=== PATIENT | male | born 1940 | race Caucasian/White ===

== ENCOUNTER 2019-01-11 00:44 | Emergency (ER) | payer MEDICARE ==
[~2019-01-11] VITALS: Ht 170.2 cm; Wt 45.6 kg
[~2019-01-11 00:44] MED LIST: BUPR-83 PO; ESZO1TAB11; LORA1TAB PO; PRIM50TA31; REM15T PO
[2019-01-11 01:18] VITALS: BP 121/97
[2019-01-11] MEDS ORDERED: bacitracin 15gm ointment TP ONE (02:15)
[2019-01-11] MEDS ORDERED: acetaminophen 325mg tablet PO ONE (02:15)
[2019-01-11] MEDS ORDERED: ibuprofen 200mg tablet PO ONE (02:15)
[2019-01-11] MEDS ORDERED: TETanus/Pertussis (Acell)/Diphther VAC/PF (Tdap-Adult) 0.5ml syringe IM ONE (02:15)
[2019-01-11] MEDS ORDERED: ACET-2615 PO (02:26)
--- NOTE | 2019-01-11 03:05 | NUR ---
PT WOUND CLEANED WITH 50 ML NS. SURROUNDING SKIN TREATED WITH TINCTURE OF BENZOIN. STERI STRIPS APPLIED LATERALLY ACROSS WOUND. BACITRACIN APPLIED TO WOUND THEN COVERED WITH NON STICK DRESSING AND TAPE.
== END 2019-01-11 03:08 | disposition home or self-care (01) ==
LOC: ER 00:45
DX: S01.81XA Laceration without foreign body of other part of head, initial encounter (principal); S60.211A Contusion of right wrist, initial encounter; Z79.899 Other long term (current) drug therapy; Z60.2 Problems related to living alone; W18.39XA Other fall on same level, initial encounter; Y93.02 Activity, running; Y92.481 Parking lot as the place of occurrence of the external cause; Y99.8 Other external cause status
CPT/HCPCS: 29125; 70450; 73110; 90471; 90715; 99284

== ENCOUNTER 2019-08-08 20:12 | Emergency (ER) | payer MEDICARE ==
[2019-08-08 20:15] VITALS: BP 114/43
[2019-08-08] MEDS ORDERED: TETanus/Pertussis (Acell)/Diphther VAC/PF (Tdap-Adult) 0.5ml syringe IM ONE (21:05)
--- NOTE | 2019-08-08 21:10 | NUR ---
PT WOUND FLUSHED W/ NS
== END 2019-08-08 21:31 | disposition home or self-care (01) ==
LOC: ER 20:13
DX: S61.311A Laceration without foreign body of left index finger with damage to nail, initial encounter (principal); F41.9 Anxiety disorder, unspecified; F32.9 Major depressive disorder, single episode, unspecified; Z98.890 Other specified postprocedural states; Z60.2 Problems related to living alone; Z79.899 Other long term (current) drug therapy; W26.0XXA Contact with knife, initial encounter; Y93.89 Activity, other specified; Y92.89 Other specified places as the place of occurrence of the external cause; Y99.8 Other external cause status
CPT/HCPCS: 12001; 90471; 99283

== ENCOUNTER 2021-12-02 17:00 | Inpatient (IN) | payer MEDICARE ==
[~2021-12-02] VITALS: Ht 172.7 cm; Wt 59.4 kg
[~2021-12-02 17:00] MED LIST changes: +BUPR-114 PO; -BUPR-83 PO
[2021-12-02 21:38] VITALS: BP 134/68
--- NOTE | 2021-12-02 21:39 | NUR ---
Admission Note: Pt admitted to [facility] on 5150 for dts. pt attempted suicide by cutting throat and arms. pt reports hx of depression and recent withdrawal from kratum, cannabis, and norco. pt reports withdrawal was precipitating factor in suicide attempt. pt reports he was experiencing insomnia, inability to eat and increased anxiety, causing him to feel suicidal. Pt is cooperative, forthcoming and friendly during admission process. Pt has hx of bph, skin cx and intermittent upper back pain.
[2021-12-02] MEDS ORDERED: loperamide 2mg capsule PO PRN (21:40)
[2021-12-02] MEDS ORDERED: mag hydrox/Alum hydrox/simeth 30ml oral suspension PO PRN (21:40)
[2021-12-02] MEDS ORDERED: acetaminophen 325mg tablet PO PRN ×2 (21:40)
[2021-12-02] MEDS ORDERED: mirtazapine 15mg tablet PO ONE (21:45)
[2021-12-02] MEDS ORDERED: tamsulosin 0.4mg capsule PO ONE (21:45)
[2021-12-02] MEDS ORDERED: Melatonin 3mg tablet PO ONE (21:50)
[2021-12-02] MEDS ORDERED: TAMSULOSIN (21:57)
[2021-12-02] MEDS ORDERED: PROP20TA6 PO (21:57)
[2021-12-02] MEDS ORDERED: MIRT45TA83 PO (21:57)
[2021-12-02] MEDS ORDERED: CITA10TA22 (21:57)
[2021-12-02] MEDS ORDERED: MIRT-88 PO (21:57)
[2021-12-02] MEDS ORDERED: MELA3TAB70 PO (22:01)
[2021-12-03] MEDS ORDERED: PROP20TA6 PO (02:59)
[2021-12-03] MEDS ORDERED: TAMSULOSIN PO (03:02)
[2021-12-03] MEDS ORDERED: FLO0.4C PO (03:03)
[2021-12-03] MEDS ORDERED: MELA5TAB12 PO (03:04)
[2021-12-03 08:00] VITALS: BP 127/60
[2021-12-03] MEDS: propranolol 10mg tablet PO SCH ×2 (08:00→08:58)
[2021-12-03] MEDS ORDERED: LORazepam 1 MG tablet PO SCH (08:00)
--- NOTE | 2021-12-03 08:00 | NUR ---
During morning medication pass pt did not know if he had ever taken propranolol and was hesitatnt to take it. Over the course of the day pt's HR went from 86 at 0800 to 100 at 1430.
[2021-12-03] MEDS: docusate sod 100mg capsule PO SCH ×2 (08:58→20:07)
[2021-12-03 13:57] LABS: HEMOGLOBIN A1C 5.9 % (4.5-6.2)
[2021-12-03 14:06] LABS: CHOL/HDL RATIO 2.7 (0.00-4.99); CHOLESTEROL 217 MG/DL (0-200); HDL CHOLESTEROL 79 MG/DL (35-60); LDL CHOLESTEROL 115 MG/DL (50-100); TRIGLYCERIDES 112 MG/DL (20-135)
[2021-12-03] MEDS ORDERED: LORazepam 1 MG tablet PO PRN (15:40)
[2021-12-03] MEDS ORDERED: traZODone 50mg tablet PO PRN (16:00)
--- NOTE | 2021-12-03 17:41 | NUR ---
Nursing Progress Note Legal hold:5150 Client on involuntary status for DTS Report received from nurse GIL Harden with use of SBAR[]. Why are they here: Pt attempted suicide three weeks ago by slashing his throat and stabbing himself all over his body. Assessment What has happened this shift: Pt observed on his bed asleep at the start of the shift. He was cooperative with 1:1 assessment and medication administration. Pt spent the day watching sports and movies on TV and socializing with peers in the main room. S/I, H/I: Denies A/VH: Denies Sleep:Napped right after lunch briefly ADL's: Showered Group attendance: N/A Were meds taken: Yes Any med S/E: None noted or reported Mental Status Exam Appearance: Older white haired man wearing green unit scrubs Eye contact: Good Behavior: Kota, calm and cooperative Speech: Clear, normal rate and volume Mood: "This place is helping me." Affect: Depressed somewhat anxious Thought process: Linear, circumstantial Thought Content: focused on his anxiety; requested nighttime meds at 1700. Cognition: A/O x4 Insight: Fair Judgment:Fair Interventions PRN's used: N/A Therapeutic interventions: Provided 1:1 assessment with therapeutic communication and active listening, medication administration/education/monitoring, monitored q 15 minute safety checks. Restraints/seclusion/emergency medication: N/A Justification of Continued Inpatient Treatment: Pt is a DTS needing a safe place for mental health and medication stability.
[2021-12-03 19:39] VITALS: BP 119/56
[2021-12-03] MEDS: LORazepam 0.5 MG tablet PO SCH (20:07)
[2021-12-03] MEDS: tamsulosin 0.4mg capsule PO SCH (20:07)
[2021-12-03] MEDS: primidone 50mg tablet PO SCH (20:08)
[2021-12-03] MEDS: mirtazapine 15mg tablet PO SCH (20:08)
[2021-12-03] MEDS ORDERED: Melatonin 3mg tablet PO SCH (21:00)
[2021-12-03] MEDS ORDERED: mirtazapine 15mg tablet PO SCH (21:00)
--- NOTE | 2021-12-04 00:08 | NUR ---
Nursing Progress Note Legal hold:5150 Client on involuntary status for DTS Report received from nurse GIL Jung with use of SBAR[]. Why are they here: Pt attempted suicide three weeks ago by slashing his throat and stabbing himself all over his body. Assessment What has happened this shift: Pt up on the unit at the start of the shift. He was cooperative with 1:1 assessment. Pt was watching sports and movies on TV and socializing with peers in the group room. He ate snack in group room and was med compliant. S/I, H/I: Denies A/VH: Denies Sleep:See sleep assessment ADL's: Showered Group attendance: N/A Were meds taken: Yes Any med S/E: None noted or reported Mental Status Exam Appearance: Older white haired man wearing green unit scrubs Eye contact: Good Behavior: Kota, calm and cooperative Speech: Clear, normal rate and volume Mood: "This place is helping me." Affect: Depressed somewhat anxious Thought process: Linear, circumstantial Thought Content: focused on his anxiety; requested nighttime meds at 1700. Cognition: A/O x4 Insight: Fair Judgment:Fair Interventions PRN's used: N/A Therapeutic interventions: Provided 1:1 assessment with therapeutic communication and active listening, medication administration/education/monitoring, monitored q 15 minute safety checks. Restraints/seclusion/emergency medication: N/A Justification of Continued Inpatient Treatment: Pt is a DTS needing a safe place for mental health and medication stability.
[2021-12-04] MEDS: LORazepam 0.5 MG tablet PO SCH ×3 (07:47→20:00)
[2021-12-04] MEDS: docusate sod 100mg capsule PO SCH ×2 (07:47→19:59)
[2021-12-04] MEDS: busPIRone 5mg tablet PO SCH ×3 (07:47→20:00)
[2021-12-04 08:00] VITALS: BP 120/52
[2021-12-04] MEDS: magnesium hydroxide 30ml (MOM) UD suspension PO PRN (11:25)
--- NOTE | 2021-12-04 17:44 | NUR ---
Nursing Progress Note Legal hold: 5150 Client on involuntary status for DTS Report received from nurse GIL Olivera with use of SBAR Why are they here: Pt attempted suicide three weeks ago by slashing his throat and stabbing himself all over his body. Assessment What has happened this shift: RN received pt. asleep in bed at start of shift. Pt. awoke for breakfast and took all medications. 1:1 done at bedside, pt. reports he is good. States, I have a better perspective on things now, I can just sit in my apartment and be safe as the world goes crazy with [place], [place], politicians You know? Pt. reports he is thankful that he has children who care about him and that his first has been calling and checking on him. Pt. states, Avelina been three times Im not doing that again. Pt. denies all mental health symptoms. Pt. napped intermittently during the day. Pt. is social with peers and staff. Pt. shaved on day shift. S/I, H/I: Denies A/VH: Denies Sleep: Pt. slept 8 hours on NOC shift and napped intermittently during the day. ADL's: Independent. Pt. shaved. Group attendance: N/A Were meds taken: Yes Any med S/E: Denies, none observed. Mental Status Exam Appearance: Older white haired man wearing green unit scrubs. Clean shaven. Eye contact: WNL Behavior: Cooperative, quiet, isolates to his room. Guarded. Speech: WNL Mood: Euthymic Affect: Congruent with mood. Thought process: Linear Thought Content: Circumstantial Cognition: A/O x4 Insight: Fair Judgment: Fair Interventions PRN's used: N/A Therapeutic interventions: Provided 1:1 assessment with therapeutic communication and active listening, medication administration/education/monitoring, monitored q 15 minute safety checks. Restraints/seclusion/emergency medication: N/A Justification of Continued Inpatient Treatment: Pt is a DTS needing a safe place for mental health and medication stability.
[2021-12-04] MEDS: tamsulosin 0.4mg capsule PO SCH (20:00)
[2021-12-04] MEDS: primidone 50mg tablet PO SCH (20:00)
[2021-12-04] MEDS: mirtazapine 15mg tablet PO SCH (20:00)
[2021-12-04 20:24] VITALS: BP 112/58
--- NOTE | 2021-12-04 23:05 | NUR ---
Nursing Progress Note Legal hold: 5150 Client on involuntary status for DTS Report received from GIL Dixon with use of SBAR. Why are they here: Pt attempted suicide three weeks ago by slashing his throat and stabbing himself all over his body. Assessment What has happened this shift: pt was active on the unit at shift change, conversing with the charge nurse and other patients. Pt is friendly and cooperative and is social with other patients. Pt reports that he is having anxiety but his Ativan is working. All hs meds taken without issue. S/I, H/I: Denies A/VH: Denies Sleep:See sleep assessment ADL's: Showered Group attendance: N/A Were meds taken: Yes Any med S/E: None noted or reported Mental Status Exam Appearance: Older white haired man wearing green unit scrubs Eye contact: Good Behavior: Kota, calm and cooperative Speech: Clear, normal rate and volume Mood: "This place is helping me." Affect: Depressed somewhat anxious Thought process: Linear, circumstantial Thought Content: focused on his anxiety; requested nighttime meds at 1700. Cognition: A/O x4 Insight: Fair Judgment:Fair Interventions PRN's used: N/A Therapeutic interventions: Provided 1:1 assessment with therapeutic communication and active listening, medication administration/education/monitoring, monitored q 15 minute safety checks. Restraints/seclusion/emergency medication: N/A Justification of Continued Inpatient Treatment: Pt is a DTS needing a safe place for mental health and medication stability.
[2021-12-05 07:52] VITALS: BP 119/62
[2021-12-05] MEDS: docusate sod 100mg capsule PO SCH ×2 (08:24→19:23)
[2021-12-05] MEDS: busPIRone 5mg tablet PO SCH ×3 (08:24→20:09)
[2021-12-05] MEDS: LORazepam 0.5 MG tablet PO SCH ×3 (08:24→20:09)
[2021-12-05] MEDS: magnesium hydroxide 30ml (MOM) UD suspension PO PRN (09:05)
--- NOTE | 2021-12-05 10:19 | NUR ---
Initial: Pt admit for MESHA with SI. Currently on a regular diet and eating well with 100% PO intake throughout LOS meeting estimated nutrient needs. LBM 12/03, documented as small with constipation, pt receiving routine and PRN bowel care. No nutrition diagnosis at this time. Will continue to follow. Recommendations: 1) Continue regular diet 2) Routine bowel care 3) Weekly scaled weights Addendum: 12/05/21 at [address] Amended: Links added.
--- NOTE | 2021-12-05 18:16 | NUR ---
Nursing Progress Note Legal hold: 5250 Client on involuntary status for DTS Report received from GIL Nelson with use of SBAR Why are they here: Pt attempted suicide three weeks ago by slashing his throat and stabbing himself all over his body. Assessment What has happened this shift: RN received pt. asleep in bed at start of shift. Pt. awoke for breakfast and took all medications. Pt. continues to c/o of constipation and received milk of magnesia with moderate effect. Pt. reports that he feels ready for discharge, however, pt. will be discharged to his daughters house but she wont be home until Saturday. Pt. states, Im fine with staying here until Saturday. Pt. reports doing some writing and thinking about his life. Pt. states, I should be ... but I didn't see any kind of visions... I was fully expecting to enter the next life... 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 Pt. states, when thinking about my life I ask myself why I do some things, I ask why Im facetious sometimes Pt. observed socializing with peers and watching TV in community room and rec room. S/I, H/I: Denies A/VH: Denies Sleep: Pt. slept 8.75 hours on NOC shift and napped intermittently during the day. ADL's: Independent. Group attendance: N/A Were meds taken: Yes Any med S/E: Denies, none observed. Mental Status Exam Appearance: Older white haired man wearing green unit scrubs. Eye contact: WNL Behavior: Cooperative, social with peers, watching TV in rec room and community room. Speech: WNL Mood: Euthymic Affect: Congruent with mood. Thought process: Linear Thought Content: Focused on discharge. Cognition: A/O x4 Insight: Fair Judgment: Fair Interventions PRN's used: N/A Therapeutic interventions: Provided 1:1 assessment with therapeutic communication and active listening, medication administration/education/monitoring, monitored q 15 minute safety checks. Restraints/seclusion/emergency medication: N/A Justification of Continued Inpatient Treatment: Pt is a DTS needing a safe place for mental health and medication stability.
[2021-12-05 19:42] VITALS: BP 130/69
[2021-12-05] MEDS: primidone 50mg tablet PO SCH (20:10)
[2021-12-05] MEDS: tamsulosin 0.4mg capsule PO SCH (20:10)
[2021-12-05] MEDS: mirtazapine 15mg tablet PO SCH (20:10)
--- NOTE | 2021-12-06 03:39 | NUR ---
Nursing Progress Note Legal hold: 5150 Client on involuntary status for DTS Report received from GIL Dixon with use of SBAR. Why are they here: Pt attempted suicide three weeks ago by slashing his throat and stabbing himself all over his body. Assessment What has happened this shift: pt continues to do well on the unit, he is social with peers and friendly towards staff. pt believes he is ready to go home but understands that there needs to be a safe plan for dc. Pt was served 5250 notice by charge nurse and pt was accepting of it. Pt reports an improvement in his constipation but just a little. Pt does not appear to be anxious and denies being suicidal. Pt accepted hs meds without issue. S/I, H/I: Denies A/VH: Denies Sleep: See sleep assessment ADL's: Showered Group attendance: N/A Were meds taken: Yes Any med S/E: None noted or reported Mental Status Exam Appearance: Older white haired man wearing green unit scrubs Eye contact: Good Behavior: Kota, calm and cooperative Speech: Clear, normal rate and volume Mood: "This place is helping me." Affect: congruent Thought process: Linear, circumstantial Thought Content: focused on his anxiety; requested nighttime meds at 1700. Cognition: A/O x4 Insight: Fair Judgment:Fair Interventions PRN's used: N/A Therapeutic interventions: Provided 1:1 assessment with therapeutic communication and active listening, medication administration/education/monitoring, monitored q 15 minute safety checks. Restraints/seclusion/emergency medication: N/A Justification of Continued Inpatient Treatment: Pt is a DTS needing a safe place for mental health and medication stability.
[2021-12-06] MEDS: LORazepam 0.5 MG tablet PO SCH ×3 (07:47→20:09)
[2021-12-06] MEDS: docusate sod 100mg capsule PO SCH ×2 (07:47→20:09)
[2021-12-06] MEDS: busPIRone 5mg tablet PO SCH ×3 (07:47→20:07)
[2021-12-06 08:00] VITALS: BP 114/57
[2021-12-06] MEDS: magnesium hydroxide 30ml (MOM) UD suspension PO PRN (09:09)
--- NOTE | 2021-12-06 09:29 | NUR ---
Pt. attended group today. We talked about healthy living habits such as sleep, exercise, and nutrition and medication management. Pt. was open and friendly in the group. He shared some of his personal story with the group in regards to how he ended up coming in to [facility]. He reported that he was using a lot of marijuana which led him to have strange thinking and he believes this is what ultimately led him to this episode. He reported that he feels he has learned a lesson and will not be returning to marijuana usage again. He talked openly and freely. He listened to others appropriately and with respect. He reported that he is feeling 100 percent better then when he first entered the hospital which he is grateful for as he reported that he was feeling very anxious and was desperate to feel calm. His thought content and thought process were WNL. He was alert and oriented X 4. His demeanor was calm and pleasant. Lashell Gaston LCSW
--- NOTE | 2021-12-06 15:01 | NUR ---
Pt. attended group today. We discussed Radical Acceptance and Distress Tolerance skills. This Tie In Hand led a visualization that Pt. participated in. We completed a Self-Care Wheel exercise as well. Pt. engaged in the discussion well. He was interested in the topic and shared his thoughts and feelings. He spent time sharing about his story and how recent marijuana usage cause this episode for him he believes. He reported that he already is feeling a lot better then he was.He was alert and oriented X 4. His thought content and thought process was WNL. He engaged well with his peers and seemed to enjoy socializing with the group. Lashell Gaston LCSW
--- NOTE | 2021-12-06 17:03 | NUR ---
Nursing Progress Note Legal hold: 5250 Client on involuntary status for DTS Report received from nurse GIL Bullock with use of SBAR Why are they here: Pt attempted suicide three weeks ago by slashing his throat and stabbing himself all over his body. Assessment What has happened this shift: RN received pt. asleep in bed at start of shift. Pt. awoke for breakfast and took all medications. Pt. c/o of constipation and given MOM with good effect. 1:1 done in rec room. Pt. reports feeling neither happy nor sad. Pt. states he feels, focused and that he is ready to go home whenever his daughter is ready for him. Pt. observed watching TV in rec room is social with peers and staff. S/I, H/I: Denies A/VH: Denies Sleep: Pt. slept 8 hours on NOC shift and napped intermittently during the day. ADL's: Independent. Group attendance: Yes Were meds taken: Yes Any med S/E: Denies, none observed. Mental Status Exam Appearance: Older white haired man wearing green unit scrubs. Eye contact: WNL Behavior: Cooperative, social with peers, watching TV in rec room and community room. Speech: WNL Mood: Euthymic Affect: Congruent with mood. Thought process: Linear Thought Content: Circumstantial. 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 Cognition: A/O x4 Insight: Fair Judgment: Fair Interventions PRN's used: N/A Therapeutic interventions: Provided 1:1 assessment with therapeutic communication and active listening, medication administration/education/monitoring, monitored q 15 minute safety checks. Restraints/seclusion/emergency medication: N/A Justification of Continued Inpatient Treatment: Pt is a DTS needing a safe place for mental health and medication stability.
[2021-12-06 19:58] VITALS: BP 112/58
[2021-12-06] MEDS: tamsulosin 0.4mg capsule PO SCH (20:08)
[2021-12-06] MEDS: primidone 50mg tablet PO SCH (20:08)
[2021-12-06] MEDS: mirtazapine 15mg tablet PO SCH (20:09)
--- NOTE | 2021-12-06 23:06 | NUR ---
Nursing Progress Note Legal hold: 5150 Client on involuntary status for DTS Report received from nurse GIL Eng with use of SBAR. Why are they here: Pt attempted suicide three weeks ago by slashing his throat and stabbing himself all over his body. Assessment What has happened this shift: Patient was observed laying in bed socializing with roommate at beginning of shift. Patient later was observed pacing hallways and ended up in recreation room watching tv with others. Patient got up and participated in snack and then took all scheduled medications including 25mg trazodone. Pills had to be taken slowly due to patients hands shaking. Patient returned back to the recreations room and then later to bed. S/I, H/I: Denies A/VH: Denies Sleep: See sleep assessment ADL's: independent Group attendance: N/A Were meds taken: Yes Any med S/E: None noted or reported Mental Status Exam Appearance: Older white haired man wearing green unit scrubs Eye contact: Good Behavior: Kota, calm and cooperative Speech: Clear, normal rate and volume Mood: "This place is helping me." Affect: congruent Thought process: Linear, circumstantial Thought Content: focused on his anxiety; requested nighttime meds at 1700. Cognition: A/O x4 Insight: Fair Judgment:Fair Interventions PRN's used: Trazodone Therapeutic interventions: Provided 1:1 assessment with therapeutic communication and active listening, medication administration/education/monitoring, monitored q 15 minute safety checks. Restraints/seclusion/emergency medication: N/A Justification of Continued Inpatient Treatment: Pt is a DTS needing a safe place for mental health and medication stability.
[2021-12-07 07:46] VITALS: BP 114/57
[2021-12-07] MEDS: docusate sod 100mg capsule PO SCH ×2 (09:07→20:16)
[2021-12-07] MEDS: busPIRone 5mg tablet PO SCH ×3 (09:07→20:17)
[2021-12-07] MEDS: LORazepam 0.5 MG tablet PO SCH ×3 (09:07→20:18)
--- NOTE | 2021-12-07 13:43 | NUR ---
Nursing Progress Note: Legal hold: 5250 Client on involuntary status for DTS Report received from nurse with use of SBAR: ADEN Bullock Why are they here: Pt attempted suicide three weeks ago by slashing his throat and stabbing himself all over his body. Assessment What has happened this shift: Received pt. up and talking with his roommate at the beginning of the shift. Pt. attended breakfast in the Group Room, and afterwards sat watching TV in the Recreation Room. This designer/writer introduced herself and established rapport, and 1:1 completed. Pt. presents as pleasant and affect is blunted with animation. He denies any current S/I, and states, "I'm looking forward to the future. I've been writing things down and I have goals." When questioned regarding his recent suicide attempt, pt. reports he was feeling lonely and having negative thoughts and regrets regarding events of his past. However, pt. goes on to state, "I don't feel any of that now, I feel like a new person with a second chance." Pt. reports he has a supportive daughter who lives close by and a little dog that he misses. He is hopeful that he can return home on Saturday when his daughter can pick him up. Pt. is observed to be interacting appropriately with others, but does nap intermittently during the shift. He reports awakening early with restless sleep, this was endorsed to Dr. Johnston. The steri-strips present to neck lacerations were removed (as they were naturally coming off). Lacerations on neck and bilateral upper extremities appear to be scabbed over and healing well. S/I, H/I: Denies A/VH: Denies, is not observed to be responding to any internal stimuli Sleep: Sleep hours are 6.75, pt. naps intermittently during the shift ADL's: Independent Group attendance: Yes Were meds taken: Yes Any med S/E: None Mental Status Exam Appearance: Neat and appropriately dressed Eye contact: Good Behavior: Cooperative and pleasant Speech: WNL Mood: Pleasant Affect: Blunted with animation Thought process: Linear Thought Content: Goal oriented Cognition: A&O x4 Insight: Fair Judgment: Fair Interventions PRN's used: None Therapeutic interventions:Introduced self and established rapport, maintained a safe and supportive environment, ensured contract for safety, provided clear and simple instructions, provided active listening and positive encouragement, and maintained Q15min safety checks. Restraints/seclusion/emergency medication: N/A Justification of Continued Inpatient Treatment: Pt. continues to require a safe and supportive environment and medication adjustments.
[2021-12-07 19:00] VITALS: BP 115/79
[2021-12-07] MEDS: mirtazapine 15mg tablet PO SCH (20:16)
[2021-12-07] MEDS: traZODone 50mg tablet PO PRN (20:16)
[2021-12-07] MEDS: tamsulosin 0.4mg capsule PO SCH (20:17)
[2021-12-07] MEDS: primidone 50mg tablet PO SCH (20:17)
--- NOTE | 2021-12-08 03:58 | NUR ---
Nursing Progress Note: Legal hold: 5250 Client on involuntary status for DTS Report received from nurse with use of SBAR: ADEN Bruce Why are they here: Pt attempted suicide three weeks ago by slashing his throat and stabbing himself all over his body. Assessment What has happened this shift: Patient was found sitting in recreation room watching tv with other patients. Patient continues to have shaky hands and finds it difficult to hold drinks or take pills without dropping some. Patient stats he is having a better day, he is enjoying socializing with other patients. Patient got up to participate in snack and was assisted in taking night medications. Medications included prn trazodone. Patient finished watching movie and went to bed. S/I, H/I: Denies A/VH: Denies Sleep:See sleep assessment ADL's: Independent Group attendance: n/a Were meds taken: Yes Any med S/E: None Mental Status Exam Appearance: Neat and appropriately dressed Eye contact: Good Behavior: Cooperative and pleasant Speech: WNL Mood: Pleasant Affect: Blunted with animation Thought process: Linear Thought Content: Goal oriented Cognition: A&O x4 Insight: Fair Judgment: Fair Interventions PRN's used: Trazodone Therapeutic interventions:Introduced self and established rapport, maintained a safe and supportive environment, ensured contract for safety, provided clear and simple instructions, provided active listening and positive encouragement, and maintained Q15min safety checks. Restraints/seclusion/emergency medication: N/A Justification of Continued Inpatient Treatment: Pt. continues to require a safe and supportive environment and medication adjustments.
--- NOTE | 2021-12-08 07:05 | NUR ---
5250 hearing upheld for DTS
[2021-12-08 08:03] VITALS: BP 117/61
[2021-12-08] MEDS: docusate sod 100mg capsule PO SCH ×2 (08:50→20:14)
[2021-12-08] MEDS: busPIRone 5mg tablet PO SCH ×3 (08:50→20:15)
[2021-12-08] MEDS: LORazepam 0.5 MG tablet PO SCH ×3 (08:50→20:16)
--- NOTE | 2021-12-08 09:58 | NUR ---
Pt. attended group today. Each pt. scaled their mood and anxiety level today to practice scaling. We discussed how trauma/emotion remains in your body and how the brain sends messages to the amygdala which can cause a flight/fight response. Pt. engaged well in the group. He seemed to find the information about the limbic system interesting. He shared his thoughts about consciousness that were a bit hard to follow but showed that he was able to engage and synthesize the information that was been shared. He was alert and oriented X 4. His thought content and thought process was WNL. He was calm and pleasant to work with. His mood appeared to be stable, somewhat upbeat with a full range of affect. Lashell Gaston LCSW
--- NOTE | 2021-12-08 12:13 | NUR ---
Nursing Progress Note: Legal hold: 5250 Client on involuntary status for DTS Report received from nurse with use of SBAR: Elsie Pierson RN Why are they here: Pt attempted suicide three weeks ago by slashing his throat and stabbing himself all over his body. Assessment What has happened this shift: Received pt. sleeping at the beginning of the shift. He awoke and went into the Recreation Room where he was observed to be watching football with others. Pt. greeted this specification writer animatedly. He continues to deny any S/I and again reports that he is hopeful that he can return home on Saturday. Pt. appears to be goal oriented and is looking forward to the future. His self-inflicted lacerations continue to appear to be healing well. Pt. continues to exhibit a chronic tremor in his bilateral upper extremities, but this does not prevent him form preforming independent ADLs. Pt. remains up during the shift and is observed to be interacting well with others. He attends group where he continues to learn coping skills which he can continue to practice after discharge. S/I, H/I: Denies A/VH: Denies, is not observed to be responding to any internal stimuli Sleep: Sleep hours are 8, pt. reports he slept well ADL's: Independent Group attendance: Yes Were meds taken: Yes Any med S/E: None Mental Status Exam Appearance: Neat and appropriately dressed Eye contact: Good Behavior: Cooperative and pleasant Speech: WNL Mood: Pleasant Affect: Blunted with animation Thought process: Linear Thought Content: Goal oriented Cognition: A&O x4 Insight: Fair Judgment: Fair Interventions PRN's used: None Therapeutic interventions:Maintained a safe and supportive environment, ensured contract for safety, provided clear and simple instructions, provided active listening and positive encouragement, monitored self-inflicted laceration sites, and maintained Q15min safety checks. Restraints/seclusion/emergency medication: N/A Justification of Continued Inpatient Treatment: Per Dr. Johnston, pt. continues to require medication adjustments and a safe and supportive environment where he can continue to learn coping skills.
[2021-12-08 19:22] VITALS: BP 126/56
[2021-12-08] MEDS: mirtazapine 15mg tablet PO SCH (20:14)
[2021-12-08] MEDS: traZODone 50mg tablet PO PRN (20:14)
[2021-12-08] MEDS: primidone 50mg tablet PO SCH (20:15)
[2021-12-08] MEDS: tamsulosin 0.4mg capsule PO SCH (20:16)
--- NOTE | 2021-12-09 02:10 | NUR ---
5150 NOTE: REASON FOR ADMISSION: Melecio attempted suicide by taking a razor blade and cutting his throat. He continues to state he needs help. Mahesh attempted suicide three weeks ago by stabbing himself multiple times on his body and throat. One prior (voluntary) psychiatric placement.
--- NOTE | 2021-12-09 04:34 | NUR ---
Nursing Progress Note: Legal hold: 5250 Client on involuntary status for DTS Report received from nurse with use of SBAR: ADEN Bruce Why they are here: Melecio attempted suicide by taking a razor blade and cutting his throat. He continues to state he needs help. Mahesh attempted suicide three weeks ago by stabbing himself multiple times on his body and throat. One prior (voluntary) psychiatric placement. Assessment What has happened this shift: Patient was found sitting in recreation room watching a movie with other patients at beginning of shift. Patient was later seen sitting in community room watching tv with his roommate. Patient spent shift going back and forth between tv rooms and his bed. Patient got up for snack time and took all night medications including prn trazodone. Patient was seen preforming exercise in hallway before going to bed. S/I, H/I: Denies A/VH: Denies, is not observed to be responding to any internal stimuli Sleep: See sleep assessment ADL's: Independent Group attendance: N/A Were meds taken: Yes Any med S/E: None Mental Status Exam Appearance: Neat and appropriately dressed Eye contact: Good Behavior: Cooperative and pleasant Speech: WNL Mood: Pleasant Affect: Blunted with animation Thought process: Linear Thought Content: Goal oriented Cognition: A&O x4 Insight: Fair Judgment: Fair Interventions PRN's used: Trazodone Therapeutic interventions: Maintained a safe and supportive environment, ensured contract for safety, provided clear and simple instructions, provided active listening and positive encouragement, monitored self-inflicted laceration sites, and maintained Q15min safety checks. Restraints/seclusion/emergency medication: N/A Justification of Continued Inpatient Treatment: Per Dr. Johnston, pt. continues to require medication adjustments and a safe and supportive environment where he can continue to learn coping skills.
[2021-12-09 08:00] VITALS: BP 101/65
[2021-12-09] MEDS: LORazepam 0.5 MG tablet PO SCH ×3 (08:54→20:18)
[2021-12-09] MEDS: docusate sod 100mg capsule PO SCH (08:54)
[2021-12-09] MEDS: busPIRone 5mg tablet PO SCH ×3 (08:55→20:18)
--- NOTE | 2021-12-09 16:33 | NUR ---
Nursing Progress Note: Legal hold: 5250 Client on involuntary status for DTS Report received from nurse with use of SBAR: Elsie Pierson RN Why are they here: Pt attempted suicide three weeks ago by slashing his throat and stabbing himself all over his body. Assessment What has happened this shift: Pt observed sitting in the RR room at the beginning of the shift. Pt requested for the TV to be turned on. He sat most of the day in the RR with a blanket wrapped around him watching TV. Pt talked about his discharge to his daughters house on Saturday. He asked questions regarding prescriptions and requested print outs of his medications for when he is discharged. Provided education on the discharge planning process here and current medications. Encouraged pt to learn to set up pill boxes to use at home. Pt shared how his daughter is "very involved in my care she loves me very much and I love her very much." S/I, H/I: Denies A/VH: Denies, is not observed to be responding to any internal stimuli Sleep: did not sleep this shift ADL's: Independent Group attendance: No Were Meds taken: Yes Any med S/E: None Mental Status Exam Appearance: Remained in his night clothes most of the day. Eye contact: Good Behavior: Cooperative and pleasant Speech: WNL Mood: Pleasant Affect: Blunted Thought process: Linear Thought Content: Goal oriented Cognition: A&O x4 Insight: Fair Judgment: Fair Interventions PRN's used: None Therapeutic interventions: Provided 1:1 assessment with therapeutic communication and active listening, provided education on current dosages of medications and managing his medications at home, on monitored laceration sites, and maintained Q15min safety checks. Restraints/seclusion/emergency medication: N/A Justification of Continued Inpatient Treatment: Per Dr. Johnston, pt. continues to require medication adjustments and a safe and supportive environment where he can continue to learn coping skills.
[2021-12-09 19:30] VITALS: BP 112/72
[2021-12-09] MEDS: mirtazapine 15mg tablet PO SCH (20:18)
[2021-12-09] MEDS: tamsulosin 0.4mg capsule PO SCH (20:18)
[2021-12-09] MEDS: primidone 50mg tablet PO SCH (20:19)
--- NOTE | 2021-12-10 04:27 | NUR ---
3627 NOTE: REASON FOR ADMISSION: Melecio attempted suicide by taking a razor blade and cutting his throat. He continues to state he needs help. Mahesh attempted suicide three weeks ago by stabbing himself multiple times on his body and throat. One prior (voluntary) psychiatric placement. Assessment; what happened this shift: Pt found in dining room at shift change; isolated at back of room; wearing green scrubs; hair slightly messy; pt pleasant & cooperative with initial physical assessment; has good eye contact; responses to questions & commands appropriate; took all routine meds without difficulty; in room after snack; no c/o's of pain or discomfort throughout the shift; pt now awake walking in hallway; states "just getting my exercise"
[2021-12-10 07:22] VITALS: BP 114/47
[2021-12-10] MEDS: busPIRone 5mg tablet PO SCH ×3 (08:52→20:19)
[2021-12-10] MEDS: LORazepam 0.5 MG tablet PO SCH ×3 (08:52→20:19)
--- NOTE | 2021-12-10 17:21 | NUR ---
Nursing Progress Note: Legal hold: 5250 Client on involuntary status for DTS Report received from nurse with use of SBAR: Elsie Pierson RN Why are they here: Pt attempted suicide three weeks ago by slashing his throat and stabbing himself all over his body. Assessment What has happened this shift: Pt spent most of the day watching football games. He talked about his discharge again today. He mentioned his dog, "I haven't seen for a month cannot wait to see the pup." He had a big smile on his face talking about his dog and all the things he wanted to do when he got home. Discussed coping skills today. Pt states he plans to work out regularly, take his medications as prescribed and communicate with family." Pt states the Buspirone and Ativan have "helped so much." Buspirone increased today. He will now be on Buspirone 15mg TID and Ativan 0.5mg TID. He shared his follow up will be with Dr. Bocanegra. S/I, H/I: Denies A/VH: Denies, is not observed to be responding to any internal stimuli Sleep: did not sleep this shift ADL's: Independent Group attendance: No Were Meds taken: Yes Any med S/E: None Mental Status Exam Appearance: Older unshaved male with green scrubs. Eye contact: Good Behavior: Cooperative and pleasant Speech: WNL Mood: Pleasant Affect: Blunted Thought process: Linear Thought Content: Goal oriented Cognition: A&O x4 Insight: Fair Judgment: Fair Interventions PRN's used: None Therapeutic interventions: Provided 1:1 assessment with therapeutic communication and active listening, medication administration/education/monitoring, and maintained Q15min safety checks. Restraints/seclusion/emergency medication: N/A Justification of Continued Inpatient Treatment: Per Dr. Johnston, pt. continues to require medication adjustments and a safe and supportive environment where he can continue to learn coping skills.
[2021-12-10 20:00] VITALS: BP 120/58
[2021-12-10] MEDS: mirtazapine 15mg tablet PO SCH (20:18)
[2021-12-10] MEDS: primidone 50mg tablet PO SCH (20:19)
[2021-12-10] MEDS: tamsulosin 0.4mg capsule PO SCH (20:20)
--- NOTE | 2021-12-10 22:13 | NUR ---
Nursing Progress Note: Legal hold: 5250 Client on involuntary status for DTS Report received from nurse with use of SBAR: Elsie Pierson RN Why are they here: Pt attempted suicide three weeks ago by slashing his throat and stabbing himself all over his body. Assessment What has happened this shift: Pt finished watching the football games then took his medications and went to bed. He is looking forward to leaving tomorrow and talked about meeting with Dr. Garza "first thing in the morning." S/I, H/I: Denies A/VH: Denies, is not observed to be responding to any internal stimuli Sleep: In bed by 2029 ADL's: Independent Group attendance: No Were Meds taken: Yes Any med S/E: None Mental Status Exam Appearance: Older unshaved male with green scrubs. Eye contact: Good Behavior: Cooperative and pleasant Speech: WNL Mood: Pleasant Affect: Blunted Thought process: Linear Thought Content: Goal oriented Cognition: A&O x4 Insight: Fair Judgment: Fair Interventions PRN's used: None Therapeutic interventions: Provided 1:1 assessment with therapeutic communication and active listening, medication administration/education/monitoring, and maintained Q15min safety checks. Restraints/seclusion/emergency medication: N/A Justification of Continued Inpatient Treatment: Per Dr. Johnston, pt. continues to require medication adjustments and a safe and supportive environment where he can continue to learn coping skills.
[2021-12-11] MEDS: busPIRone 5mg tablet PO SCH ×2 (07:27→13:20)
[2021-12-11] MEDS: LORazepam 0.5 MG tablet PO SCH ×2 (07:27→13:20)
[2021-12-11 08:00] VITALS: BP 100/67
[2021-12-11] MEDS ORDERED: TRAZ-251 PO (12:41)
[2021-12-11] MEDS ORDERED: Lorazepam PO (12:41)
[2021-12-11] MEDS ORDERED: MIRT-87 PO (12:41)
--- NOTE | 2021-12-11 14:06 | NUR ---
Discharge Presenting Issues: Pt's scheduled to d/c today, attending PA request SS assistance w/dcp activities. Interventions: SS met w/pt reviewed dcp, per session pt does not have any clothes/shoes, needs transportation home, and scrap picker his apartment's marcelo from his dtr. SS provided clothes & socks from the unit's clothing closet, reviewed dcp w/pt, and retrieved marcelo to his apartment from his dtr. Plan: pt to d/c today shahnaz f/u w/Carlotta Albright. Nahed Marley LCSW Addendum: 12/11/21 at 1425 by Nahed Marley Amended: Links added.
--- NOTE | 2021-12-11 15:31 | NUR ---
DISCHARGE NOTE: Patient was discharged from unit at 1455. Pt was escorted to waiting transportation by television script writer. Pt was A&Ox4. Pt hopeful and stated "I have a list of things I need to take care of when I get home." Pt denies all psychotic symptoms and states "Dr Bocanegra and Dr. Johnston saved my life." Pt had no personal belongs. Pt verbalized understanding the importance of keeping all f/u appointments with providers.
== END 2021-12-11 14:55 | disposition home or self-care (01) | DRG 880 ==
LOC: ADULT MH 17:00
PROVIDERS: ADMIT Psychiatry & Neurology Neurology with Special Qualifications in Child Neurology; ATTEND Psychiatry & Neurology Neurology with Special Qualifications in Child Neurology
DX: F41.1 Generalized anxiety disorder (principal); F32.9 Major depressive disorder, single episode, unspecified; F11.21 Opioid dependence, in remission; F12.10 Cannabis abuse, uncomplicated; N40.0 Benign prostatic hyperplasia without lower urinary tract symptoms; G25.0 Essential tremor; S11.91XA Laceration without foreign body of unspecified part of neck, initial encounter; S61.512A Laceration without foreign body of left wrist, initial encounter; S61.511A Laceration without foreign body of right wrist, initial encounter; X78.9XXA Intentional self-harm by unspecified sharp object, initial encounter; Y93.89 Activity, other specified; Y99.8 Other external cause status; Z79.899 Other long term (current) drug therapy; Z86.16 Personal history of COVID-19; Y92.098 Other place in other non-institutional residence as the place of occurrence of the external cause; T14.91XA Suicide attempt, initial encounter
CPT/HCPCS: 36415; 80061; 83036; 87081

== ENCOUNTER 2022-03-18 11:37 | Inpatient (IN) | payer MEDICARE ==
[~2022-03-18] VITALS: Ht 167.6 cm; Wt 58.2 kg
[~2022-03-18 11:37] MED LIST changes: -BUPR-114 PO; -ESZO1TAB11; +FLO0.4C PO; -LORA1TAB PO; +Lorazepam PO; +MELA5TAB12 PO; +MIRT-87 PO; +PROP20TA6 PO; -REM15T PO; +TAMSULOSIN PO; +TRAZ-251 PO
[2022-03-18 12:53] LABS: ALANINE AMINOTRANSFERASE 17 U/L (12-78); ALBUMIN 3.8 G/DL (3.4-5.0); ALBUMIN/GLOBULIN RATIO 1.2 (1.1-1.5); ALKALINE PHOSPHATASE 63 IU/L (46-116); ANION GAP 6 (8-16); ASPARTATE AMINO TRANSFERASE 18 U/L (10-37); BILIRUBIN,TOTAL 0.4 MG/DL (0.1-1.0); BLOOD UREA NITROGEN 20 MG/DL (7-18); BUN/CREATININE RATIO 28.2 (5.4-32.0); CALCIUM 8.7 MG/DL (8.5-10.1); CHLORIDE 104 MMOL/L (99-107); CREATININE 0.71 MG/DL (0.60-1.10); ETHANOL < 0.010 GM/DL (0.0-0.010); GLUCOSE 106 MG/DL (70-104); POTASSIUM 4.6 MMOL/L (3.5-5.1); SODIUM 140 MMOL/L (135-145); TOTAL CARBON DIOXIDE 30.1 MMOL/L (24-32); TOTAL PROTEIN 7.1 G/DL (6.4-8.2); eGFR > 90 ML/MIN
[2022-03-18 12:59] LABS: BASOPHILS % (AUTO) 0.3 % (0-1); EOSINOPHILS % (AUTO) 1.1 % (0-6); HEMATOCRIT 39.8 % (42.0-52.0); HEMOGLOBIN 12.8 g/dl (14.0-17.9); LYMPHOCYTES # (AUTO) 0.4 X10'3 (1.1-4.8); LYMPHOCYTES % (AUTO) 12.7 % (21-51); MEAN CORPUSCULAR HEMOGLOBIN 27.6 PG (27.0-31.0); MEAN CORPUSCULAR HGB CONC 32.1 g/dL (33.0-36.5); MEAN PLATELET VOLUME 7.2 FL (7.4-10.4); MONOCYTES # (AUTO) 0.4 X10'3 (0-0.9); MONOCYTES % (AUTO) 9.9 % (2-12); NEUTROPHILS # (AUTO) 2.7 X10'3 (1.8-7.7); PLATELET COUNT 193 X10'3 (140-440); RED BLOOD COUNT 4.63 X10'6 (4.70-6.10); RED CELL DISTRIBUTION WIDTH 15.2 % (11.5-14.5); WHITE BLOOD COUNT 3.5 X10'3 (4.5-11.0)
[2022-03-18 13:25] LABS: URINE AMPHETAMINE SCREEN NEGATIVE (Neg); URINE BARBITUATE SCREEN NEGATIVE (Neg); URINE BENZODIAZEPINES SCREEN NEGATIVE (Neg); URINE CANNABINOID SCREEN NEGATIVE (Neg); URINE COCAINE SCREEN NEGATIVE (Neg); URINE METHADONE SCREEN NEGATIVE (Neg); URINE OPIATE SCREEN NEGATIVE (Neg); URINE PHENCYCLIDINE SCREEN NEGATIVE (Neg)
[2022-03-18] MEDS ORDERED: BUSP10TA11 PO (14:17)
[2022-03-18] MEDS ORDERED: LORA-268 PO (14:36)
[2022-03-18] MEDS ORDERED: TRAZ-251 PO (14:36)
[2022-03-18] MEDS ORDERED: MIRT-116 PO (14:36)
[2022-03-18] MEDS ORDERED: BUSP15TA3 PO (14:36)
[2022-03-18] MEDS ORDERED: LORazepam 1 MG tablet PO ONE (17:00)
[2022-03-18] MEDS: busPIRone 15mg tablet PO SCH (20:35)
[2022-03-18] MEDS: mirtazapine 15mg tablet PO SCH (20:35)
[2022-03-18] MEDS: traZODone 50mg tablet PO PRN (21:25)
[2022-03-18] MEDS: LORazepam 0.5 MG tablet PO PRN (21:25)
--- NOTE | 2022-03-18 23:00 | NUR ---
The patient is a very pleasant 81 year old gentleman who self presented to the ER earlier in the day. He reports coming into the ER because "I felt like I was going down hill" He adamently denies that he felt suicidal but felt he was getting more depressed and he came to [facility] hoping to talk with Dr. Bocanegra to get a medication adjustment. He reported he tried to get a hold of someone today but the was unable to contact them. He denies any kind of psychotic symptoms. He stated that he currently lives alone in an apartment with his dog. He was made aware that someone from [facility] would see him in the morning.
--- NOTE | 2022-03-18 23:31 | NUR ---
Patient's packet was sent to [facility].
--- NOTE | 2022-03-19 00:14 | NUR ---
THe patient appears to be sleeping
--- NOTE | 2022-03-19 01:35 | NUR ---
The patient appears to be sleeping
--- NOTE | 2022-03-19 03:05 | NUR ---
The patient appears to be sleeping
--- NOTE | 2022-03-19 04:24 | NUR ---
The patient appears to be sleeping
--- NOTE | 2022-03-19 05:47 | NUR ---
The patient appeared to have slept well during the night after being moved to the overflow from the main ER.
--- NOTE | 2022-03-19 06:30 | NUR ---
Received patient and report from ADEN Mack (NOC Shift). Patient located in Bed #22 is sleeping at this time. Will continue to observed patient. Appears comfortable.
[2022-03-19] MEDS: busPIRone 15mg tablet PO SCH ×3 (08:42→20:39)
[2022-03-19] MEDS: LORazepam 0.5 MG tablet PO PRN ×2 (08:43→15:45)
--- NOTE | 2022-03-19 08:45 | NUR ---
Patient requested Ativan as he is notably shaking at this time. Patient states "I'm feeling anxious." Informed the patient he last had Ativan at 2125 last evening and I could give him a dose right now. Patient agreed and it was given at 0845.
--- NOTE | 2022-03-19 09:49 | NUR ---
Patient accepted to [facility] per Teo, route delivery service driver. Patient's belongings, copy of [id number] taken with patient, who was transferred to a w/c for transport, given to Toe for transport up to [facility] for admission.
[2022-03-19 09:50] VITALS: BP 119/62
[2022-03-19] MEDS ORDERED: loperamide 2mg capsule PO PRN (10:05)
[2022-03-19] MEDS ORDERED: mag hydrox/Alum hydrox/simeth 30ml oral suspension PO PRN (10:05)
[2022-03-19] MEDS ORDERED: acetaminophen 325mg tablet PO PRN ×2 (10:05)
[2022-03-19] MEDS ORDERED: magnesium hydroxide 30ml (MOM) UD suspension PO PRN (10:05)
--- NOTE | 2022-03-19 11:03 | NUR ---
Admission note: Pt admitted to [facility] today on a 5150 at 0950 for DTS. Pt reports suicide thoughts, unable to safety plan and does not feel safe in home environment living alone. Pt has history of anxiety and depression.
[2022-03-19] MEDS ORDERED: venlafaxine XR 37.5mg cap (Q24H) PO ONE (12:20)
[2022-03-19 19:41] VITALS: BP 107/62
[2022-03-19] MEDS: mirtazapine 15mg tablet PO SCH (20:39)
[2022-03-19] MEDS: traZODone 50mg tablet PO PRN (20:39)
--- NOTE | 2022-03-19 23:46 | NUR ---
Nursing Progress Note: Melecio Camacho Legal hold: 5150 Client on involuntary status for DTS Report received from RN with use of SBAR. REASON FOR ADMIT: Pt admitted to [facility] for [facility] health today on a 5150 at 0950 for DTS. Pt reports suicide thoughts, unable to safety plan and does not feel safe in home environment living alone. Pt has history of anxiety and depression. Assessment What has happened this shift: Patient lying in bed at shift change. Patient woke for this nurse to conduct 1:1 assessment. Patient states that he was in a not so safe place at his home due to recent depression. Patient reported that he thought that it would be a good idea to admit himself due to past SI. Patient states that he currently has no plans to harm himself but thinks about it in passing. Patient talked about his dog Ellis who is a Corgi that he loves very much. Patient reports living alone with dog and recent suicide attempts in November of last year. The patient requested Trazodone for sleep and Mirtazapine. The patient watched TV in the rec room before snack time. The patient ate snack in the community room, isolated to self. Patient took evening meds w/o complications and fell asleep shortly after. S/I, H/I: Passive SI. A/VH: Pt denies. Sleep: See sleep hours ADL's: Independent Group attendance: No Were meds taken: Yes Any med S/E: None noted or reported. Mental Status Exam Appearance: Older adult male with bravo hair cut short, has mustache dressed in green unit scrubs. Eye contact: good Behavior: cooperative, pleasant Mood: Depressed Affect:blunted Thought process: circumstantial Thought Content:getting better Cognition: A/O x4 Insight: Poor Judgment: Poor Interventions PRN's used: Trazodone 50mg Therapeutic interventions: 1:1 assessment, establishment of rapport, therapeutic communication, active listening, ensured contract for safety, medication administration/monitoring, provided distraction, redirection, positive reinforcement, and maintained Q15 minute safety checks. Restraints/seclusion/emergency medication: None Justification of Continued Inpatient Treatment: Pt endorses passive SI, pt needs further medication and adjustment in a safe and therapeutic environment to prevent danger to self.
[2022-03-20] MEDS: busPIRone 15mg tablet PO SCH ×3 (07:58→20:00)
[2022-03-20] MEDS: venlafaxine XR 75mg capsule (Q24H) PO SCH (07:58)
[2022-03-20] MEDS: LORazepam 0.5 MG tablet PO PRN ×3 (08:02→18:20)
[2022-03-20 08:13] LABS: CHOL/HDL RATIO 2.8 (0.00-4.99); CHOLESTEROL 208 MG/DL (0-200); HDL CHOLESTEROL 74 MG/DL (35-60); LDL CHOLESTEROL 123 MG/DL (50-100); TRIGLYCERIDES 69 MG/DL (20-135)
[2022-03-20 08:27] LABS: HEMOGLOBIN A1C 6.2 % (4.5-6.2)
[2022-03-20 08:33] VITALS: BP 113/70
--- NOTE | 2022-03-20 09:07 | NUR ---
Malnutrition consult: Pt admitted w/ major depressive disorder w/ hx of illicit drug use per EMR. Pt reports 14-23lb wt loss per MST though current scaled wt is consistent w/ previous wt in December of this year. Currently on Regular diet w/ 75-100% intake of first 3 meals. No signs of muscle or fat wasting noted. No edema documented. At this time, pt does not meet minimum criteria for malnutrition. Addendum: 03/20/22 at [address] Amended: Links added.
--- NOTE | 2022-03-20 14:55 | NUR ---
Nursing Progress Note: Melecio Legal hold: 5150 Client on involuntary status for DTS Report received from ADEN Hobbs with use of SBAR. REASON FOR ADMIT: Pt admitted to [facility] for [facility] today on a 5150 at 0950 for DTS. Pt reports suicide thoughts, unable to safety plan and does not feel safe in home environment living alone. Pt has history of anxiety and depression. Assessment What has happened this shift: Patient is resting quietly in bed at the start of the shift. Cooperative with 1:1 assessment and medications but does ask several times about what medications they are and if there are others he should be taking. Patient education provided. Continues to endorse passive SI without a plan. Contracts for safety while here on the unit. States he was doing well until a couple of months ago and now his daughter is moving which causes his stress. Also states he feels like his medication needs adjusting which he hopes to accomplish while here on the unit. Participates in group. Noted resting in bed for a short time in the afternoon. S/I, H/I: Endorses passive SI A/VH: Denies Sleep: 1.5 hours in the morning. Short nap in the afternoon. ADL's: Independent Group attendance: Yes Were meds taken: Yes Any med S/E: None observed or reported. Mental Status Exam Appearance: Older adult male with bravo hair cut short, has mustache dressed in green unit scrubs. Eye contact: good Behavior: Cooperative, pleasant Mood: Okay. Affect: Constricted Thought process: Linear Thought Content: Worried about his daughter moving away and wants medication adjustments. Cognition: A/O x4 Insight: Poor Judgment: Poor Interventions PRN's used: Ativan Therapeutic interventions: 1:1 assessment, establishment of rapport, therapeutic communication, active listening, ensured contract for safety, medication administration/monitoring, provided distraction, redirection, positive reinforcement, and maintained Q15 minute safety checks. Restraints/seclusion/emergency medication: None Justification of Continued Inpatient Treatment: needs further medication and adjustment in a safe and therapeutic environment to prevent danger to self.
[2022-03-20 19:23] VITALS: BP 113/62
[2022-03-20] MEDS: traZODone 50mg tablet PO PRN (20:00)
[2022-03-20] MEDS: mirtazapine 15mg tablet PO SCH (20:00)
--- NOTE | 2022-03-21 00:34 | NUR ---
Nursing Progress Note Legal hold: 5150 for being a danger to himself Report received from Santos Bruce RN REASON FOR ADMIT: Pt admitted to [facility] today on a 5150 at 0950 for DTS. Pt reports suicide thoughts, unable to safety plan and does not feel safe in home environment living alone. Pt has history of anxiety and depression. Assessment What has happened this shift: The patient isolated to his bed the entire evening. Right before change of shift he was given an Ativan for anxiety. He was approached for the evening assessment to assess for severity of depressive symptoms and self harm risk. The patient was very pleasant and cooperative. He stated that he is feeling better than on admit and his depression was not as "overpowering" as it was on admit. He stated added "but I'm not the life of the alliance party" He stated he felt his depression severity was at a 7/10 on admit but was now down to a 3/10. He denied that he felt suicidal but added, "My biggest fear is that I'll revert back to the way I was" He reports improved appetite. He did decline to come out of his room for the evening snack. He denies medication side effects. He is alert and oriented. Psychotic symptoms were denied and were not evident during the evening assessment. He stated that his energy level was "Okay" He stated that he has not showered since the day of admit but stated he intended to take one in the am. His insight and judgement are intact. He was appropriately dressed. His speech was spontaneous with a normal rate and rhythm. Thought process was linear and logical. Justification of Continued Inpatient Treatment: The patient continues to improve but has required PRN Ativan for increased anxiety.
--- NOTE | 2022-03-21 07:38 | NUR ---
Met with Mahesh to complete psychosocial assessment. Mahesh is a 81 y/o male who presented to [facility] ED with suicidal ideation. He was placed on a 5150 for danger to self because he was unable to safety plan and does not feel safe in his home environment living alone. He has a history of suicide attempts. He cut his wrist in a suicide attempt 11/21 and shortly later he attempted suicide 12/01/21 via cutting his throat which required several sutures. He was placed at [facility] and discharged home to his apartment on 12/11/21. He is connected with [facility] and sees Dr Bocanegra out-patient. Mahesh reported he had been taking his medications as prescribed and he found by the end of January the ativan was not as helpful for his anxiety as it had been. He reported he started having more anxiety and was worried he would feel like harming himself again. He reported his next appointment with Dr Bocanegra is in May and he felt like he could not wait that long to address his anxiety so he came to the ER. Mahesh denied any current SI and stated he is feeling much better compared to when he came to the ER. Discussed social activities and Mahesh reported he recently went to the [facility] to see what they offer. He noted they have a pool table there but due to an issue with his eye he can't play the way he used to. Suggested he check out [facility]. Telephone Sales Agent will provide him with information about their program. Mahesh reported he was seeing a therapist at Dr Monique office, however, would like to see a therapist at [facility] instead. Mahesh reported he drove himself to the ER and can drive himself home upon discharge. He reported he parked in the employee parking lot. Telephone Sales Agent checked on his car for him and confirmed it is safe and parked int he employee lot across the street. Informed security that he is parked there and the officer reported it will not get towed. Plan: Telephone Sales Agent will assist with discharge plan and coordinating follow up. DOV Escudero Addendum: 03/21/22 at 0742 by Malika OCONNOR Amended: Links added.
[2022-03-21] MEDS: venlafaxine XR 75mg capsule (Q24H) PO SCH (07:39)
[2022-03-21] MEDS: LORazepam 0.5 MG tablet PO PRN ×2 (07:39→12:24)
[2022-03-21] MEDS: busPIRone 15mg tablet PO SCH ×3 (07:39→20:22)
[2022-03-21 07:43] VITALS: BP 113/65
--- NOTE | 2022-03-21 15:40 | NUR ---
Nursing Progress Note: [employer] hold: 5150 Client on involuntary status for DTS Report received from ADEN Hobbs with use of SBAR. REASON FOR ADMIT: Pt reports suicide thoughts, unable to safety plan and does not feel safe in home environment living alone. Pt has history of anxiety and depression. Assessment What has happened this shift: Patient is resting quietly in bed at the start of the shift. Cooperative with 1:1 assessment and medications. Requests PRN Ativan first thing in the morning which appears helpful for anxiety. Continues to endorse passive SI but states he is feeling less depressed since his arrival. Patient hopes to have his medication adjusted while on the unit so he can return home. Patient takes occasional short naps during the day and is noted participating in group, and watching TV in common areas. S/I, H/I: Endorses passive SI A/VH: Denies Sleep: 1 hour in the morning. Takes short naps during the day. ADL's: Independent Group attendance: Yes Were meds taken: Yes Any med S/E: None observed or reported. Mental Status Exam Appearance: Older adult male with bravo hair cut short, has mustache dressed in green unit scrubs. Eye contact: good Behavior: Cooperative, pleasant Mood: Fine Affect: Congruent Thought process: Linear Thought Content: Meeting needs Cognition: A/O x4 Insight: Poor Judgment: Poor Interventions PRN's used: Ativan Therapeutic interventions: 1:1 assessment, establishment of rapport, therapeutic communication, active listening, ensured contract for safety, medication administration/monitoring, provided distraction, redirection, positive reinforcement, and maintained Q15 minute safety checks. Restraints/seclusion/emergency medication: None Justification of Continued Inpatient Treatment: needs further medication and adjustment in a safe and therapeutic environment to prevent danger to self.
[2022-03-21 19:23] VITALS: BP 131/92
[2022-03-21] MEDS: traZODone 50mg tablet PO PRN (20:22)
[2022-03-21] MEDS: mirtazapine 15mg tablet PO SCH (20:22)
--- NOTE | 2022-03-21 20:58 | NUR ---
Nursing Progress Note: [employer] hold: 5150 Client on involuntary status for DTS Report received from ADEN Eng with use of SBAR. REASON FOR ADMIT: Pt reports suicide thoughts, unable to safety plan and does not feel safe in home environment living alone. Pt has history of anxiety and depression. Assessment What has happened this shift: Pt was in the rec room at change of shift watching tv. Pt states he is feeling better since he arrived but is feeling somewhat lethargic from meds and hoping that wears off. Pt states he thinks he will be able to go home Saturday. Pt spent evening socializing with another patient before going to bed. Pt requested prn ativan with HS meds. S/I, H/I: denies A/VH: Denies Sleep: see sleep hours ADL's: Independent Group attendance: Yes Were meds taken: Yes Any med S/E: None observed or reported. Mental Status Exam Appearance: Older adult male with bravo hair cut short, has mustache dressed in green unit scrubs. Eye contact: good Behavior: Cooperative, pleasant Mood: Fine Affect: Congruent Thought process: Linear Thought Content: hoping to go home saturday Cognition: A/O x4 Insight: Poor Judgment: Poor Interventions PRN's used: Ativan Therapeutic interventions: 1:1 assessment, establishment of rapport, therapeutic communication, active listening, ensured contract for safety, medication administration/monitoring, provided distraction, redirection, positive reinforcement, and maintained Q15 minute safety checks. Restraints/seclusion/emergency medication: None Justification of Continued Inpatient Treatment: needs further medication and adjustment in a safe and therapeutic environment to prevent danger to self.
[2022-03-22 07:45] VITALS: BP 102/58
[2022-03-22] MEDS: busPIRone 15mg tablet PO SCH ×3 (07:50→21:09)
[2022-03-22] MEDS: venlafaxine XR 75mg capsule (Q24H) PO SCH (07:51)
[2022-03-22] MEDS: LORazepam 0.5 MG tablet PO PRN ×3 (07:56→21:08)
--- NOTE | 2022-03-22 10:39 | NUR ---
Initial: Pt admit for depression with MESHA and SI. Currently on a regular diet with slightly fluctuating PO intake however overall eating well with average 80% PO intake meeting estimated nutrient needs. LBM 03/21. No documented edema or wounds. No nutrition intervention implemented at this time. Will continue to follow. Recommendations: 1) Continue regular diet 2) Bowel care PRN 3) Weekly scaled weights Addendum: 03/22/22 at [address] Amended: Links added.
--- NOTE | 2022-03-22 16:28 | NUR ---
Nursing Progress Note: [employer] hold: 5150 Client on involuntary status for DTS Report received from ADEN Bullock with use of SBAR. REASON FOR ADMIT: Pt reports suicide thoughts, unable to safety plan and does not feel safe in home environment living alone. Pt has history of anxiety and depression. Assessment What has happened this shift: Patient received sleeping in bed at shift change. He joined in the group room for breakfast with peers. Patient endorsed that he is doing pretty good this morning. He is noted to be polite, pleasant, and cooperative with care. Patient was receptive to scheduled medication and 1:1 assessment. He was given PRN Ativan for c/o anxiety at 0756 with effectiveness. Patient denies SI/HI, AH or VH. Does not appear to be responding to internal stimuli. Patient endorsed that he is thinking about going home and has been missing his dog. Patient observed to have brightened affect while talking to this typewriter aligner about his dog. He was noted to be isolative to his room throughout the day, noted lying in bed listening to music through headphones. Patient encouraged to participate on the unit, however, endorses that he has no interest. Patient appears bored throughout the day. He joined for all snack and meal times in the group room with peers. S/I, H/I: Denies A/VH: Denies Sleep: Pt slept 7.95 hours last night per NOC shift. Takes short naps during the day. ADL's: Independent Group attendance: No group provided Were meds taken: Yes Any med S/E: None observed or reported. Mental Status Exam Appearance: Older adult male with bravo hair cut short, has mustache dressed in green unit scrubs. Eye contact: Good Behavior: Cooperative, pleasant Mood: Pretty good Affect: Full range with brightening Thought process: Linear Thought Content: Meeting needs. Desires to go home. Cognition: A&O x4 Insight: Poor Judgment: Poor Interventions PRN's used: Ativan Therapeutic interventions: 1:1 assessment, establishment of rapport, therapeutic communication, active listening, ensured contract for safety, medication administration/monitoring, provided distraction, redirection, positive reinforcement, and maintained Q15 minute safety checks. Restraints/seclusion/emergency medication: None Justification of Continued Inpatient Treatment: Needs further medication and adjustment in a safe and therapeutic environment to prevent danger to self.
[2022-03-22 19:47] VITALS: BP 109/65
[2022-03-22] MEDS ORDERED: tamsulosin 0.4mg capsule PO SCH (21:00)
[2022-03-22] MEDS ORDERED: mirtazapine 15mg tablet PO SCH (21:00)
[2022-03-22] MEDS: traZODone 50mg tablet PO PRN (21:08)
--- NOTE | 2022-03-22 22:37 | NUR ---
Nursing Progress Note: [employer] hold: 5150 Client on involuntary status for DTS Report received from ADEN Eng with use of SBAR. REASON FOR ADMIT: Pt reports suicide thoughts, unable to safety plan and does not feel safe in home environment living alone. Pt has history of anxiety and depression. Assessment What has happened this shift: Pt is laying in bed at shift change. He is pleasant upon interview and states he is going home tomorrow and that he feels ready to do so. He mentions that he is having trouble urinating and states Dr. Bocanegra was starting him on flomax tonight. RN called ad confirmed this, flomax 0.4 mg given. Pt states this is an ogoing problem for him and historically flomax has worked. Pt requested prn ativan and trazodone with HS meds. S/I, H/I: denies A/VH: Denies Sleep: see sleep hours ADL's: Independent Group attendance: Yes Were meds taken: Yes Any med S/E: None observed or reported. Mental Status Exam Appearance: Older adult male with bravo hair cut short, has mustache dressed in green unit scrubs. Eye contact: good Behavior: Cooperative, pleasant Mood: upbeat Affect: Congruent Thought process: Linear Thought Content: reading to go home Cognition: A/O x4 Insight: Poor Judgment: fair Interventions PRN's used: Ativan, trazodone Therapeutic interventions: 1:1 assessment, establishment of rapport, therapeutic communication, active listening, ensured contract for safety, medication administration/monitoring, provided distraction, redirection, positive reinforcement, and maintained Q15 minute safety checks. Restraints/seclusion/emergency medication: None Justification of Continued Inpatient Treatment: Pt will go home tomorrow.
[2022-03-23] MEDS ORDERED: VENL150T3 PO (07:56)
[2022-03-23] MEDS ORDERED: MIRT-87 PO (07:56)
[2022-03-23] MEDS ORDERED: TRAZ-251 PO (07:56)
[2022-03-23] MEDS ORDERED: FLO0.4C PO (07:56)
[2022-03-23 08:00] VITALS: BP 114/60
[2022-03-23] MEDS: busPIRone 15mg tablet PO SCH (08:06)
[2022-03-23] MEDS: LORazepam 0.5 MG tablet PO PRN (08:06)
[2022-03-23] MEDS: venlafaxine XR 75mg capsule (Q24H) PO SCH (08:07)
--- NOTE | 2022-03-23 10:30 | NUR ---
Patient discharged and escorted from the unit at approximately 1022. Discharge instructions reviewed with opportunity for all questions to be answered. Patients personal medications retrieved from pharmacy and returned to patient. All belongings inventoried and returned to patient. He is A&O x4, calm and cooperative with no s/s of distress. Patient was ambulatory from the unit to the front of the hospital. He left the hospital by POV.
== END 2022-03-23 10:20 | disposition home or self-care (01) | DRG 885 ==
LOC: ER 11:38 → ED HOLD 03-19 08:40 → ADULT MH 03-19 10:00
PROVIDERS: ADMIT Psychiatry & Neurology Psychiatry; ATTEND Psychiatry & Neurology Psychiatry
PROC: GZHZZZZ Group Psychotherapy (ICD-10-PCS; principal; 2022-03-19)
DX: F33.2 Major depressive disorder, recurrent severe without psychotic features (principal); R45.851 Suicidal ideations; Z60.2 Problems related to living alone; R25.1 Tremor, unspecified; F41.1 Generalized anxiety disorder; Z20.822 Contact with and (suspected) exposure to COVID-19; Z81.8 Family history of other mental and behavioral disorders; Z91.51 Personal history of suicidal behavior; Z79.899 Other long term (current) drug therapy
CPT/HCPCS: 36415; 80053; 80061; 80305; 80320; 83036; 85025; 87081; 87635; 99285; C9803

== ENCOUNTER 2022-09-04 08:55 | Emergency (ER) | payer MEDICARE ==
[~2022-09-04] VITALS: Ht 167.6 cm; Wt 54.5 kg
[~2022-09-04 08:55] MED LIST changes: +BUSP15TA3 PO; -FLO0.4C PO; +LORA-268 PO; -Lorazepam PO; -MELA5TAB12 PO; -PRIM50TA31; -PROP20TA6 PO; -TAMSULOSIN PO; +VENL150T3 PO
[2022-09-04 09:10] VITALS: BP 122/65
== END 2022-09-04 10:22 | disposition home or self-care (01) ==
LOC: ER 08:56
DX: S51.811D Laceration without foreign body of right forearm, subsequent encounter (principal); F41.9 Anxiety disorder, unspecified; F32.A Depression, unspecified; Z60.2 Problems related to living alone; Z79.899 Other long term (current) drug therapy; W45.8XXD Other foreign body or object entering through skin, subsequent encounter
CPT/HCPCS: 99281; A6258

== ENCOUNTER 2022-10-30 17:11 | Emergency (ER) | payer MEDICARE ==
[~2022-10-30] VITALS: Ht 167.6 cm; Wt 54.0 kg
[2022-10-30 17:18] VITALS: BP 137/77
[2022-10-30] MEDS ORDERED: LORA-269 PO (17:44)
== END 2022-10-30 18:11 | disposition home or self-care (01) ==
LOC: ER 17:11
DX: F41.1 Generalized anxiety disorder (principal); F32.A Depression, unspecified; Z76.0 Encounter for issue of repeat prescription; Z60.2 Problems related to living alone; Z79.899 Other long term (current) drug therapy
CPT/HCPCS: 99281; 99283

== ENCOUNTER 2023-09-07 12:05 | Emergency (ER) | payer MEDICARE ==
[~2023-09-07] VITALS: Ht 167.6 cm; Wt 52.3 kg
[~2023-09-07 12:05] MED LIST changes: +LORA-269 PO
[2023-09-07] MEDS ORDERED: LORazepam 1 MG tablet PO ONE (13:10)
[2023-09-07 13:40] VITALS: BP 124/65; PULSE 78; RESP 15; TEMP 98.3; O2SAT 100
--- NOTE | 2023-09-07 15:50 | NUR ---
AGREE WITH GRAIN I FARMWORKER'S GENERAL ASSESSMENT. PT IN STABLE CONDITION.
== END 2023-09-07 15:51 | disposition home or self-care (01) ==
LOC: ER 12:06
DX: F41.1 Generalized anxiety disorder (principal); F32.A Depression, unspecified; Z76.0 Encounter for issue of repeat prescription; Z79.899 Other long term (current) drug therapy
CPT/HCPCS: 99283

== ENCOUNTER 2024-11-09 13:02 | Emergency (ER) | payer MEDICARE ==
[~2024-11-09] VITALS: Ht 167.6 cm; Wt 52.0 kg
[2024-11-09 16:42] VITALS: BP 102/60; PULSE 70; RESP 16; TEMP 97.7; O2SAT 99
== END 2024-11-09 16:43 | disposition home or self-care (01) ==
LOC: ER 13:02
DX: S09.90XA Unspecified injury of head, initial encounter (principal); S50.312A Abrasion of left elbow, initial encounter; S60.512A Abrasion of left hand, initial encounter; R41.0 Disorientation, unspecified; Z79.899 Other long term (current) drug therapy; W18.39XA Other fall on same level, initial encounter; Y93.01 Activity, walking, marching and hiking; Y92.89 Other specified places as the place of occurrence of the external cause; Y99.8 Other external cause status
CPT/HCPCS: 70450; 99284

== ENCOUNTER 2025-10-11 16:29 | Emergency (ER) | payer MEDICARE ==
[~2025-10-11] VITALS: Ht 167.6 cm; Wt 53.0 kg
[2025-10-11 16:49] VITALS: BP 122/60; PULSE 92; RESP 16; TEMP 97.7; O2SAT 98
[2025-10-11] MEDS ORDERED: CEPH-585 PO (17:55)
--- NOTE | 2025-10-11 17:58 | Physician Documentation ---
History of Present Illness General Chief Complaint: Post-operative complication Stated Complaint: POST OP COMPLICATION/ R EAR Time Seen by MD: 17:27 Primary Medical Doctor: DR. ALVARENGA History of Present Illness Initial Comments 85-year-old male who is status post excision of the basal cell carcinoma from the left your six days ago. Reports slow healing with redness with some pus discharge. He wonders if he might have postsurgical infection. Denies fever, body aches, malaise and shortness a breath. Medication Reconciliation Allergies: Coded Allergies: No Known Allergies (Unverified , 10/11/25) Scheduled Buspirone HCl (Buspirone HCl), 1 TAB PO TID, (Reported) Mirtazapine (Mirtazapine), 15 MG PO HS Venlafaxine HCl (Venlafaxine HCl ER), 1 TAB PO DAILY Scheduled PRN Lorazepam (Ativan), 1 TAB PO TID PRN for anxiety, (Reported) Lorazepam (Ativan), 1 TAB PO Q8H PRN for for anxiety/agitation Trazodone HCl (Trazodone HCl), 50-100 MG PO HS PRN for sleep Past Medical History Past Medical History: Anxiety, Depression Past Surgical History: noncontributory Smoking: Non-Smoker Alcohol Use: None Drug Use: none Lives with: Alone Lives In: Home Occupation: other Review of Systems All Other Systems at this time: Reviewed and Negative Constitutional: Denies: fever, chills HENT: Reports: ear pain Physical Exam Physical Exam Vital Signs: RN Vital Signs have been reviewed: Yes, Temperature: 97.7, Source: Temporal, Heart Rate: 92, Respiratory Rate: 16, BP: 122/60, Pulse Oximetry: 98, Weight: 53.000 Oxygen Flow Rate: 0 General Appearance: alert, WD/WN, mild distress Head: normal inspection Face: normal inspection Pupils/EOM/Fundus: PERRLA Ear: erythema, tenderness, other (Purulent discharge) Neck: non-tender Respiratory: normal breath sounds Chest: no accessory muscle use Cardiovascular: normal peripheral pulses Neurologic: oriented x4 Motor / Sensory: no motor deficit, no sensory deficit Psychiatric: normal mood/affect Skin: normal color, warm/dry, other (0.5 cm excision to the tragus of the left your) Lymphatic: no adenopathy Progress Results/Orders Results/Orders Vital Signs 11/10/25 16:49 Temp 97.7 Pulse 92 Resp 16 B/P (MAP) 122/60 Pulse Ox 98 O2 Flow Rate 0 Medical Decision Making Additional information obtaine: N/A Findings Examination history consistent with early post surgical excision basal cell carcinoma to the left tragus area. We will provide Keflex and recommend dermatological follow up in 24-48 hours. No clinical suspicion for mastoiditis, facial cellulitis or otitis externa. Differential Diagnosis Early postoperative of infection noted without suspicion of cellulitis or mastoiditis. Departure Disposition: HOME / SELF CARE / HOMELESS Impression: Primary Impression: Postoperative infection Qualified Codes: T81.40XA - Infection following a procedure, unspecified, initial encounter Condition: Improved Additional Instructions: Please begin oral antibiotic as directed. Make follow up appointment with your local import specialist next 24-48 hours for re-evaluation. Return to the emergency department you determine if symptoms worsen. Thank you for visiting emergency department [facility]. Referrals: NO PRIMARY CARE PROVIDER (PCP) Prescriptions Cephalexin*Monohydrate* (Keflex*) 500 Mg Capsule 1 CAP PO TID, #21 CAP Prov: FERNANDEZ TONY PAC 10/11/25 Education Educated: Patient Educated regarding: diagnosis, treatment, prognosis, need for follow up Signature Scribe Signature: . Attestation: . FERNANDEZ TONY PAC Oct 11, 2025 17:58
== END 2025-10-11 18:11 | disposition home or self-care (01) ==
LOC: ER 16:30
DX: T81.40XA Infection following a procedure, unspecified, initial encounter (principal); F41.9 Anxiety disorder, unspecified; F32.A Depression, unspecified; Z85.828 Personal history of other malignant neoplasm of skin; Y92.89 Other specified places as the place of occurrence of the external cause
CPT/HCPCS: 99283